=== PATIENT | male | born 1990 | race Hispanic/Latino ===

== ENCOUNTER 2018-08-26 15:21 | Emergency (ER) | payer OTHER ==
[2018-08-26 15:46] LABS: APPEARANCE,URINE CLOUDY (CLEAR); BILIRUBIN,URINE NEGATIVE (NEGATIVE); COLOR,URINE ORANGE (YELLOW); GLUCOSE, URINE (UA) NEGATIVE (NEGATIVE); KETONES,URINE NEGATIVE (NEGATIVE); LEUKOCYTE ESTERASE ,URINE TRACE (NEGATIVE); NITRATE,URINE NEGATIVE (NEGATIVE); OCCULT BLOOD,URINE LARGE (NEGATIVE); PROTEIN,URINE TRACE mg/dL (NEGATIVE); UROBILINOGEN,URINE 0.2 mg/dL (0.2-1.0)
[2018-08-26 16:10] LABS: RBC,URINE TNTC /HPF (0-1)
[2018-08-26 16:11] LABS: BACTERIA,URINE Rare /HPF (None Seen); SQUAMOUS EPITHELIAL CELL,UR None Seen /HPF (0-2)
[2018-08-26] MEDS ORDERED: LIDOCAINE HCL-MPF 1% 2ML VIAL ONE (16:25)
[2018-08-26] MEDS ORDERED: CEFTRIAXONE SODIUM 1 GM ONE (16:26)
[2018-08-26] MEDS ORDERED: PHENAZOPYRIDINE HCL 200 MG TABLET ONE (16:26)
== END 2018-08-26 16:40 | disposition home or self-care (01) ==
LOC: EDH 15:21
DX: N30.00 Acute cystitis without hematuria (principal); Z72.0 Tobacco use
CPT/HCPCS: 81001; 87486; 87797; 96372; 99284; J0696; J3490